=== PATIENT | female | born 1995 ===

== ENCOUNTER 2024-12-14 13:48 | Outpatient (CLI) | payer OTHER | END 2024-12-14 13:51 | disposition home or self-care (01) | LOC: PRENATAL 13:48 | PROVIDERS: ATTEND Obstetrics & Gynecology Maternal & Fetal Medicine | DX: O36.80X0 Pregnancy with inconclusive fetal viability, not applicable or unspecified (principal); O34.219 Maternal care for unspecified type scar from previous cesarean delivery; Z14.8 Genetic carrier of other disease; Z3A.13 13 weeks gestation of pregnancy ==

== ENCOUNTER 2025-02-04 12:49 | Outpatient (CLI) | payer OTHER | END 2025-02-04 12:50 | disposition home or self-care (01) | LOC: PRENATAL 12:49 | PROVIDERS: ATTEND Obstetrics & Gynecology | DX: O44.00 Complete placenta previa NOS or without hemorrhage, unspecified trimester (principal); O34.219 Maternal care for unspecified type scar from previous cesarean delivery; Z3A.20 20 weeks gestation of pregnancy ==

== ENCOUNTER 2025-04-08 10:40 | Outpatient (CLI) | payer OTHER ==
[2025-04-08 10:00] VITALS: BP 113/73
[2025-04-08] MEDS ORDERED: TERBUTALINE SULFATE 1 MG/ML AMPUL SUBCUTANEO ONE (11:00)
[2025-04-08] MEDS ORDERED: RINGERS SOLUTION,LACTATED 1,000 ML IV SCH (11:00)
[2025-04-08 11:53] LABS: URINE APPEARANCE Clear; URINE BILIRRUBIN Negative (NEGATIVE); URINE BLOOD Negative; URINE COLOR Yellow; URINE GLUCOSE Negative (NEGATIVE); URINE KETONE 15 (NEGATIVE); URINE LEUKOCYTE Negative; URINE NITRATE Negative; URINE PROTEIN Trace (NEGATIVE); URINE UROBILINOGEN 1.0 E.U./dl
[2025-04-08 11:56] LABS: BASO % 0.3 % (0.1-1.2); EOS # 0.08 (0.04-0.54); EOS % 0.8 % (0.7-7.0); LYMPH # 1.54 (1.18-3.74); LYMPH % 16.2 % (19.3-53.1); MEAN PLATELET VOLUME 11.30 fl (9.4-12.4); MONO # 0.62 (0.24-0.82); MONO % 6.5 % (4.7-12.5); NEUT # 7.20 (1.56-6.13); NEUT % 75.7 % (34.0-71.1); RED CELL DISTRIBUTION WIDTH 12.4 % (11.6-14.4)
[2025-04-08 11:57] LABS: URINE BACTERIA 407.9 uL (0.0-1933); URINE EPITHELIAL CELLS 26.1 uL (0.0-38.8); URINE RBC 7.0 uL (0.0-20.8); URINE WBC 3.0 uL (0.0-23.2)
[2025-04-08 12:13] LABS: URINE CAST 0.14 uL (0.0-1.40); URINE CRYSTALS FEW /HPF
[2025-04-08] MEDS ORDERED: PRENATAL TABLE1 EAC4 PO (15:17)
[2025-04-08 15:44] VITALS: BP 105/68
[2025-04-08 19:10] VITALS: BP 105/68
== END 2025-04-08 19:23 | disposition home or self-care (01) ==
LOC: OBS/DEL 10:40
PROVIDERS: ATTEND Obstetrics & Gynecology
DX: O26.893 Other specified pregnancy related conditions, third trimester (principal); N93.0 Postcoital and contact bleeding; Z3A.30 30 weeks gestation of pregnancy; O26.849 Uterine size-date discrepancy, unspecified trimester; O26.899 Other specified pregnancy related conditions, unspecified trimester; O26.859 Spotting complicating pregnancy, unspecified trimester; O32.9XX0 Maternal care for malpresentation of fetus, unspecified, not applicable or unspecified

== ENCOUNTER → 2025-05-06 14:23 | Outpatient (CLI) | payer OTHER ==
[~2025-05-06 14:23] MED LIST: PRENATAL TABLE1 EAC4 PO
== END | disposition home or self-care (01) ==
LOC: PRENATAL 14:23
PROVIDERS: ATTEND Obstetrics & Gynecology Maternal & Fetal Medicine
DX: O26.849 Uterine size-date discrepancy, unspecified trimester (principal); O36.8199 Decreased fetal movements, unspecified trimester, other fetus; O34.219 Maternal care for unspecified type scar from previous cesarean delivery; Z3A.33 33 weeks gestation of pregnancy

== ENCOUNTER 2025-05-28 20:16 | Outpatient (CLI) | payer OTHER ==
[~2025-05-28] VITALS: Ht 167.6 cm; Wt 97.5 kg
[2025-05-28 19:39] VITALS: BP 107/64
[2025-05-28] MEDS ORDERED: RINGERS SOLUTION,LACTATED 1,000 ML IV SCH (20:45)
[2025-05-28 21:56] LABS: BASO % 0.3 % (0.1-1.2); EOS # 0.08 (0.04-0.54); EOS % 0.8 % (0.7-7.0); LYMPH # 1.92 (1.18-3.74); LYMPH % 18.3 % (19.3-53.1); MEAN PLATELET VOLUME 11.60 fl (9.4-12.4); MONO # 0.79 (0.24-0.82); MONO % 7.5 % (4.7-12.5); NEUT # 7.65 (1.56-6.13); NEUT % 72.7 % (34.0-71.1); RED CELL DISTRIBUTION WIDTH 12.3 % (11.6-14.4)
[2025-05-28] MEDS ORDERED: TERBUTALINE SULFATE 1 MG/ML AMPUL ONE (22:35)
[2025-05-28] MEDS ORDERED: TERBUTALINE SULFATE 1 MG/ML AMPUL SUBCUTANEO SCH (23:00)
[2025-05-28] MEDS ORDERED: FOLIC ACID0.8 M1 PO (23:24)
[2025-05-28 23:34] VITALS: BP 95/61
[2025-05-29 03:44] VITALS: BP 96/56; O2SAT 100
[2025-05-29 06:22] VITALS: BP 100/62; O2SAT 99
[2025-05-29 07:45] LABS: URINE APPEARANCE Cloudy; URINE BILIRRUBIN Negative (NEGATIVE); URINE BLOOD Negative; URINE COLOR Yellow; URINE GLUCOSE Negative (NEGATIVE); URINE KETONE Trace (NEGATIVE); URINE LEUKOCYTE Negative; URINE NITRATE Negative; URINE PROTEIN Negative (NEGATIVE); URINE UROBILINOGEN 1.0 E.U./dl
[2025-05-29 07:48] LABS: URINE BACTERIA 1766.3 uL (0.0-1933); URINE EPITHELIAL CELLS 133.6 uL (0.0-38.8); URINE RBC 3.6 uL (0.0-20.8); URINE WBC 21.9 uL (0.0-23.2)
[2025-05-29 08:55] LABS: URINE CAST 0.14 uL (0.0-1.40)
[2025-05-29 11:13] VITALS: BP 100/62
== END 2025-05-29 11:19 | disposition home or self-care (01) ==
LOC: OBS/DEL 20:16
PROVIDERS: ATTEND Obstetrics & Gynecology
DX: O60.03 Preterm labor without delivery, third trimester (principal); Z3A.36 36 weeks gestation of pregnancy

== ENCOUNTER 2025-05-30 15:39 | Inpatient (IN) | payer OTHER ==
[~2025-05-30] VITALS: Ht 167.6 cm; Wt 98.0 kg
[2025-05-30 15:30] VITALS: BP 127/78; O2SAT 98
[~2025-05-30 15:39] MED LIST changes: +FOLIC ACID0.8 M1 PO
[2025-05-30] MEDS ORDERED: BETAMETHASONE ACETATE,SOD PHOS 30 MG/5 ML ML ONE (15:56)
[2025-05-30] MEDS ORDERED: AMPICILLIN SODIUM 2,000 MG VIAL ONE (15:57)
[2025-05-30 16:29] LABS: BASO % 0.3 % (0.1-1.2); EOS # 0.06 (0.04-0.54); EOS % 0.6 % (0.7-7.0); LYMPH # 1.29 (1.18-3.74); LYMPH % 12.1 % (19.3-53.1); MEAN PLATELET VOLUME 11.10 fl (9.4-12.4); MONO # 0.68 (0.24-0.82); MONO % 6.4 % (4.7-12.5); NEUT # 8.58 (1.56-6.13); NEUT % 80.3 % (34.0-71.1); RED CELL DISTRIBUTION WIDTH 12.6 % (11.6-14.4)
[2025-05-30 16:48] LABS: URINE APPEARANCE Turbid; URINE BILIRRUBIN Negative (NEGATIVE); URINE BLOOD Negative; URINE COLOR Dark Yellow; URINE GLUCOSE Negative (NEGATIVE); URINE KETONE 15 (NEGATIVE); URINE LEUKOCYTE Trace; URINE NITRATE Negative; URINE PROTEIN 30 (NEGATIVE); URINE RBC 30.5 uL (0.0-20.8); URINE UROBILINOGEN 1.0 E.U./dl; URINE WBC 241.5 uL (0.0-23.2)
[2025-05-30 16:49] LABS: INR 0.97
[2025-05-30 16:59] LABS: ALT/SGPT 25.0 U/L (12-78); AST/SGOT 20.0 U/L (15-37); BILIRUBIN TOTAL 0.71 mg/dL (0.3-1.2); BUN CREA RATIO 9.0 (7.0-25.0); CREATININE SERUM 0.68 mg/dL (0.55-1.02); GFR 100.92; GLOBULINA 3.3 G/DL (2.4-3.5); GLUCOSE FASTING 88.0 mg/dL (65-100); OSMOLALITY SERUM 280.0 MOSM/KG (275-295)
[2025-05-30] MEDS ORDERED: RINGERS SOLUTION,LACTATED 1,000 ML IV SCH (17:15)
[2025-05-30] MEDS ORDERED: BETAMETHASONE ACETATE,SOD PHOS 30 MG/5 ML ML IM ONE (17:15)
[2025-05-30] MEDS ORDERED: AMPICILLIN SODIUM 2,000 MG VIAL IV ONE (17:15)
[2025-05-30] MEDS ORDERED: NIFEDIPINE 30 MG TAB.SA.OSM PO ONE (17:31)
[2025-05-30 17:50] LABS: URINE BACTERIA > 9821.5 uL (0.0-1933); URINE CAST > 21.83 uL (0.0-1.40); URINE CRYSTALS FEW /HPF; URINE EPITHELIAL CELLS > 201.7 uL (0.0-38.8); URINE MUCUS SCANT
[2025-05-30 17:51] LABS: TYPE CELLS SQUAMOUS
[2025-05-30 19:42] VITALS: BP 120/78
[2025-05-30] MEDS ORDERED: AMPICILLIN SODIUM 1,000 MG VIAL IV SCH (21:00)
[2025-05-30 23:13] VITALS: BP 106/63
[2025-05-31] MEDS ORDERED: FAMOTIDINE/PF 20 MG/2 ML VIAL IV ONE (00:30)
[2025-05-31 03:30] VITALS: BP 90/60
[2025-05-31 06:20] VITALS: BP 92/59; O2SAT 97
[2025-05-31] MEDS ORDERED: NIFEDIPINE 30 MG TAB.SA.OSM PO SCH (09:00)
[2025-05-31 11:29] VITALS: BP 90/57
[2025-05-31 15:20] VITALS: BP 97/60
[2025-05-31] MEDS ORDERED: BETAMETHASONE ACETATE,SOD PHOS 30 MG/5 ML ML IM ONE (17:15)
[2025-05-31 19:48] VITALS: BP 106/67
[2025-05-31 23:09] VITALS: BP 93/56; O2SAT 97
[2025-06-01 03:26] VITALS: BP 112/46
[2025-06-01 07:23] VITALS: BP 103/62
[2025-06-01] MEDS ORDERED: FAMOTIDINE/PF 20 MG/2 ML VIAL IV SCH (11:49)
[2025-06-01 12:00] VITALS: BP 108/73
[2025-06-01] MEDS ORDERED: FAMOTIDINE/PF 20 MG/2 ML VIAL ONE (12:39)
[2025-06-01 15:05] VITALS: BP 101/66; O2SAT 100
[2025-06-01 19:01] VITALS: BP 100/61; O2SAT 100
[2025-06-01 23:02] VITALS: BP 104/67
[2025-06-02 03:15] VITALS: BP 118/71
[2025-06-02 07:05] VITALS: BP 105/65
[2025-06-02 11:25] VITALS: BP 100/60
[2025-06-02 15:07] VITALS: BP 105/67
[2025-06-02 19:26] VITALS: BP 99/63; O2SAT 100
[2025-06-02 23:07] VITALS: BP 108/69; O2SAT 99
[2025-06-03 04:00] VITALS: BP 107/63
[2025-06-03 06:24] VITALS: BP 109/69; O2SAT 99
[2025-06-03 10:50] VITALS: BP 110/68
== END 2025-06-03 14:04 | disposition home or self-care (01) | DRG 833 ==
LOC: LDR 15:39 → OB/GYN 05-31 17:34 → LDR 05-31 18:05
PROVIDERS: ADMIT Obstetrics & Gynecology; ATTEND Obstetrics & Gynecology
PROC: 4A1HXCZ Monitoring of Products of Conception, Cardiac Rate, External Approach (ICD-10-PCS; principal; 2025-05-30)
DX: O60.03 Preterm labor without delivery, third trimester (principal); O34.211 Maternal care for low transverse scar from previous cesarean delivery; Z3A.36 36 weeks gestation of pregnancy; Z37.0 Single live birth

== ENCOUNTER 2025-06-12 09:27 | Inpatient (IN) | payer OTHER ==
[~2025-06-12] VITALS: Ht 167.6 cm; Wt 97.5 kg
[2025-06-12 09:37] LABS: BASO % 0.4 % (0.1-1.2); EOS # 0.04 (0.04-0.54); EOS % 0.3 % (0.7-7.0); LYMPH # 1.87 (1.18-3.74); LYMPH % 15.3 % (19.3-53.1); MEAN PLATELET VOLUME 11.40 fl (9.4-12.4); MONO # 0.77 (0.24-0.82); MONO % 6.3 % (4.7-12.5); NEUT # 9.42 (1.56-6.13); NEUT % 77.3 % (34.0-71.1); RED CELL DISTRIBUTION WIDTH 12.7 % (11.6-14.4)
[2025-06-12 09:58] LABS: URINE APPEARANCE Clear; URINE BILIRRUBIN Negative (NEGATIVE); URINE BLOOD Negative; URINE COLOR Yellow; URINE GLUCOSE Negative (NEGATIVE); URINE KETONE Negative (NEGATIVE); URINE LEUKOCYTE Negative; URINE NITRATE Negative; URINE PROTEIN Negative (NEGATIVE); URINE UROBILINOGEN 0.2 E.U./dl
[2025-06-12 10:02] LABS: URINE BACTERIA 26.3 uL (0.0-1933); URINE EPITHELIAL CELLS 20.9 uL (0.0-38.8); URINE WBC 6.1 uL (0.0-23.2)
[2025-06-12 10:04] LABS: INR < 0.93
[2025-06-12 10:14] LABS: URINE CAST 0.00 uL (0.0-1.40); URINE RBC 1.0 uL (0.0-20.8)
[2025-06-12 10:25] LABS: ALT/SGPT 25.0 U/L (12-78); AST/SGOT 15.0 U/L (15-37); BILIRUBIN TOTAL 0.64 mg/dL (0.3-1.2); BUN CREA RATIO 13.0 (7.0-25.0); CREATININE SERUM 0.6 mg/dL (0.55-1.02); GFR 116.6; GLOBULINA 3.8 G/DL (2.4-3.5); GLUCOSE FASTING 78.0 mg/dL (65-100); OSMOLALITY SERUM 277.0 MOSM/KG (275-295)
[2025-06-17 08:35] VITALS: BP 119/80
[2025-06-17] MEDS ORDERED: OXYTOCIN 10 UNITS/ML VIAL ONE ×2 (11:06→16:16)
[2025-06-17] MEDS ORDERED: CEFAZOLIN SODIUM 1,000 MG VIAL ONE (11:06)
[2025-06-17] MEDS ORDERED: ERYTHROMYCIN BASE OPHT 1GM EACH TUBE OP ONE (11:06)
[2025-06-17] MEDS ORDERED: MORPHINE SULFATE 4 MG/ML CARTRIDGE IV PRN (13:15)
[2025-06-17] MEDS ORDERED: RINGERS SOLUTION,LACTATED 1,000 ML IV SCH (13:45)
[2025-06-17] MEDS ORDERED: OXYTOCIN 1,000 ML IV SCH (13:45)
[2025-06-17] MEDS ORDERED: DOCUSATE SODIUM 100MG CAP PO SCH (17:00)
[2025-06-17 17:02] VITALS: BP 122/73
[2025-06-17 17:42] LABS: BASO % 0.3 % (0.1-1.2); EOS # 0.01 (0.04-0.54); EOS % 0.1 % (0.7-7.0); LYMPH # 0.68 (1.18-3.74); LYMPH % 4.5 % (19.3-53.1); MEAN PLATELET VOLUME 11.70 fl (9.4-12.4); MONO # 0.38 (0.24-0.82); MONO % 2.5 % (4.7-12.5); NEUT # 13.97 (1.56-6.13); NEUT % 92.3 % (34.0-71.1); RED CELL DISTRIBUTION WIDTH 12.6 % (11.6-14.4)
[2025-06-17] MEDS ORDERED: SIMETHICONE 125 MG CAPSULE PO SCH (18:00)
[2025-06-17 20:33] VITALS: BP 119/71
[2025-06-18 00:06] VITALS: BP 115/79
[2025-06-18 08:04] VITALS: BP 99/64
[2025-06-18] MEDS ORDERED: HYDROCORTISONE SODIUM SUCC/PF 100 MG VIAL IV NR (10:00)
[2025-06-18 15:48] VITALS: BP 118/75
[2025-06-19] VITALS: BP 108/66
[2025-06-19 08:54] VITALS: BP 121/75
== END 2025-06-19 13:46 | disposition home or self-care (01) | DRG 785 ==
LOC: OB/GYN 06-17 08:30 → O/R 06-17 10:00 → OB/GYN 06-17 15:38
PROVIDERS: ADMIT Obstetrics & Gynecology; ATTEND Obstetrics & Gynecology
PROC: 0UB70ZZ Excision of Bilateral Fallopian Tubes, Open Approach (ICD-10-PCS; 2025-06-17)
PROC: 4A1HXCZ Monitoring of Products of Conception, Cardiac Rate, External Approach (ICD-10-PCS; 2025-06-17)
PROC: 10D00Z1 Extraction of Products of Conception, Low, Open Approach (ICD-10-PCS; principal; 2025-06-17 19:45)
DX: O34.211 Maternal care for low transverse scar from previous cesarean delivery (principal); Z3A.39 39 weeks gestation of pregnancy; Z37.0 Single live birth; Z30.2 Encounter for sterilization